=== PATIENT | male | born 1985 | race African-American/Black ===

== ENCOUNTER 2018-10-04 16:58 | Emergency (ER) | payer MEDICAID ==
[~2018-10-04] VITALS: Ht 175.3 cm; Wt 100.7 kg
--- NOTE | 2018-10-04 17:00 | NUR ---
PT BIBSELF C/O WORSENING ASTHMA SYMPTOMS X 2 DAYS. PT ON MONITOR IN BED 10. PT AOX4. DENIES ANY PAIN AT THIS TIME. WILL CONTINUE TO MONITOR.
[2018-10-04] MEDS ORDERED: Magnesium 1GM/D5W 100ML PREMIX 200 ML IV ONE ×2 (17:13→17:36)
[2018-10-04] MEDS ORDERED: methylPREDNISolone SOD SUCC 125 MG/2ML VIAL ONE (17:26)
[2018-10-04] MEDS ORDERED: ALBUTEROL FS 2.5 MG/3 ML VIAL.NEB CONTNEB ONE (17:30)
[2018-10-04] MEDS ORDERED: IPRATROPIUM NEB FS 0.5 MG/2.5 ML AMPUL.NEB NEB ONE ×2 (17:30→20:30)
[2018-10-04] MEDS ORDERED: IV NS 0.9% 1,000 ML BAG IV ONE (17:30)
[2018-10-04] MEDS ORDERED: methylPREDNISolone SOD SUCC 125 MG/2ML VIAL IV ONE (17:30)
--- NOTE | 2018-10-04 17:38 | NUR ---
RADIOLOGY AT BEDSIDE FOR CXR
[2018-10-04] MEDS ORDERED: IPRATROPIUM NEB FS 0.5 MG/2.5 ML AMPUL.NEB ONE ×2 (17:43→20:16)
[2018-10-04] MEDS ORDERED: ALBUTEROL FS 2.5 MG/0.5 ML VIAL.NEB ONE (17:43)
--- NOTE | 2018-10-04 18:18 | NUR ---
PT RECEIVING BREATHING TREATMENT. PT TOLERATING WELL.
--- NOTE | 2018-10-04 19:29 | NUR ---
REPORT GIVEN TO LINDA BHAKTA FOR KEESHA
[2018-10-04] MEDS ORDERED: ALBUTEROL FS 2.5 MG/3 ML VIAL.NEB ONE (20:16)
[2018-10-04] MEDS ORDERED: ALBUTEROL FS 2.5 MG/0.5 ML VIAL.NEB NEB ONE (20:30)
[2018-10-04 21:09] VITALS: BP 110/72
== END 2018-10-04 21:09 | disposition home or self-care (01) ==
LOC: ER 17:01
DX: J45.901 Unspecified asthma with (acute) exacerbation (principal); Z87.891 Personal history of nicotine dependence; Z88.6 Allergy status to analgesic agent
CPT/HCPCS: 71045; 94640; 94644; 96365; 96375; 99285; A4606; J2930; J3475; J7030; Z7610

== ENCOUNTER 2018-11-08 06:37 | Emergency (ER) | payer MEDICAID ==
[~2018-11-08] VITALS: Ht 175.3 cm; Wt 95.3 kg
[2018-11-08] MEDS ORDERED: IPRATROPIUM NEB FS 0.5 MG/2.5 ML AMPUL.NEB NEB ONE (07:00)
[2018-11-08] MEDS ORDERED: predniSONE 20 MG TABLET PO ONE (07:00)
[2018-11-08] MEDS ORDERED: ALBUTEROL FS 2.5 MG/3 ML VIAL.NEB NEB ONE (07:00)
[2018-11-08] MEDS ORDERED: ALBUTEROL FS 2.5 MG/3 ML VIAL.NEB ONE (07:08)
[2018-11-08] MEDS ORDERED: IPRATROPIUM NEB FS 0.5 MG/2.5 ML AMPUL.NEB ONE (07:08)
--- NOTE | 2018-11-08 07:19 | NUR ---
RECEIVED PATIENT WITH ONGOING BREATHING TREATMENT
[2018-11-08] MEDS ORDERED: predniSONE 20 MG TABLET ONE (07:27)
--- NOTE | 2018-11-08 07:53 | NUR ---
Patient discharged to home in stable condition. Written and verbal after care instructions given. Patient verbalizes understanding of instruction.
[2018-11-08 08:02] VITALS: BP 124/86
== END 2018-11-08 08:03 | disposition home or self-care (01) ==
LOC: ER 06:39
DX: J45.901 Unspecified asthma with (acute) exacerbation (principal); F17.200 Nicotine dependence, unspecified, uncomplicated; Z88.6 Allergy status to analgesic agent

== ENCOUNTER 2018-12-05 00:46 | Emergency (ER) | payer MEDICAID ==
[~2018-12-05] VITALS: Ht 165.1 cm; Wt 97.5 kg
--- NOTE | 2018-12-05 01:00 | NUR ---
Pt came to emergency dept. complaining of SOB since yesterday afternoon. Pt states he took his inhalers at home and it has not gotten better. Pt has hx of ashtma. Pt speaking in full sentences. Pt AAXO4. Pt saturating 91% on room air. Pt put on the monitor and pending eval from ER .
--- NOTE | 2018-12-05 01:05 | NUR ---
LASHAUN MORE AT BEDSIDE.
[2018-12-05] MEDS ORDERED: IPRATROPIUM NEB FS 0.5 MG/2.5 ML AMPUL.NEB ONE (01:13)
[2018-12-05] MEDS ORDERED: ALBUTEROL FS 2.5 MG/3 ML VIAL.NEB ONE (01:13)
--- NOTE | 2018-12-05 01:13 | NUR ---
RT AT BEDSIDE.
[2018-12-05] MEDS ORDERED: predniSONE 20 MG TABLET ONE (01:24)
[2018-12-05] MEDS ORDERED: predniSONE 20 MG TABLET PO ONE (01:30)
[2018-12-05] MEDS ORDERED: ALBUTEROL FS 2.5 MG/3 ML VIAL.NEB NEB ONE (01:30)
[2018-12-05] MEDS ORDERED: IPRATROPIUM NEB FS 0.5 MG/2.5 ML AMPUL.NEB NEB ONE (01:30)
--- NOTE | 2018-12-05 01:48 | NUR ---
Patient discharged to home in stable condition. Written and verbal after care instructions given. Patient verbalizes understanding of instruction. Pt ambulatory with steady gait.
[2018-12-05 01:50] VITALS: BP 126/80
== END 2018-12-05 01:52 | disposition home or self-care (01) ==
LOC: ER 00:51
DX: J45.909 Unspecified asthma, uncomplicated (principal); F17.200 Nicotine dependence, unspecified, uncomplicated; Z88.6 Allergy status to analgesic agent
CPT/HCPCS: 94640 ×2; 99284; A4606; J7512

== ENCOUNTER 2018-12-29 21:57 | Emergency (ER) | payer MEDICAID ==
[~2018-12-29] VITALS: Ht 175.3 cm; Wt 97.5 kg
[2018-12-29] MEDS ORDERED: predniSONE 20 MG TABLET ONE (22:53)
[2018-12-29] MEDS ORDERED: IPRATROPIUM NEB FS 0.5 MG/2.5 ML AMPUL.NEB ONE (22:56)
[2018-12-29] MEDS ORDERED: ALBUTEROL FS 2.5 MG/3 ML VIAL.NEB ONE (22:56)
[2018-12-29] MEDS ORDERED: ALBUTEROL FS 2.5 MG/3 ML VIAL.NEB CONTNEB ONE (23:00)
[2018-12-29] MEDS ORDERED: predniSONE 20 MG TABLET PO ONE (23:00)
[2018-12-29] MEDS ORDERED: IPRATROPIUM NEB FS 0.5 MG/2.5 ML AMPUL.NEB NEB ONE (23:00)
--- NOTE | 2018-12-29 23:30 | NUR ---
admitted for wheezing episode,stable,awake,alert., not in acyte distress.
--- NOTE | 2018-12-30 00:15 | NUR ---
Discharged to home ,stable,not in any dsitress.
[2018-12-30 01:07] VITALS: BP 120/68
== END 2018-12-30 00:15 | disposition home or self-care (01) ==
LOC: ER 22:01
DX: J45.901 Unspecified asthma with (acute) exacerbation (principal); F17.200 Nicotine dependence, unspecified, uncomplicated; Z88.6 Allergy status to analgesic agent
CPT/HCPCS: 93005; 94640 ×2; 99284; A4606; J7512

== ENCOUNTER 2019-01-10 17:46 | Emergency (ER) | payer MEDICAID ==
[~2019-01-10] VITALS: Ht 175.3 cm; Wt 97.5 kg
[2019-01-10] MEDS ORDERED: ALBUTEROL FS 2.5 MG/3 ML VIAL.NEB NEB ONE (18:30)
[2019-01-10] MEDS ORDERED: IPRATROPIUM NEB FS 0.5 MG/2.5 ML AMPUL.NEB NEB ONE (18:30)
[2019-01-10] MEDS ORDERED: predniSONE 20 MG TABLET PO ONE (18:30)
[2019-01-10] MEDS ORDERED: ALBUTEROL FS 2.5 MG/3 ML VIAL.NEB ONE (18:39)
[2019-01-10] MEDS ORDERED: IPRATROPIUM NEB FS 0.5 MG/2.5 ML AMPUL.NEB ONE (18:39)
[2019-01-10] MEDS ORDERED: predniSONE 20 MG TABLET ONE (18:43)
[2019-01-10 19:25] VITALS: BP 125/84
--- NOTE | 2019-01-10 19:34 | NUR ---
PT SEEN AND ASSESSED BY DR LOUIS. WAS GIVEN BREATHING TREATMENT. PT STATES FEELING MUCH BETTER. D/C HOME W/ PRESCRIPTION IN STABLE CONDITION.
== END 2019-01-10 19:38 | disposition home or self-care (01) ==
LOC: ER 17:46
DX: J45.21 Mild intermittent asthma with (acute) exacerbation (principal); F17.200 Nicotine dependence, unspecified, uncomplicated; Z88.6 Allergy status to analgesic agent
CPT/HCPCS: 71045; 93005; 94640; 99283; J7512

== ENCOUNTER 2019-02-05 08:56 | Emergency (ER) | payer MEDICAID ==
[~2019-02-05] VITALS: Ht 175.3 cm; Wt 97.5 kg
--- NOTE | 2019-02-05 09:00 | NUR ---
CAME IN FOR SOB AROUND 6AM TODAY. ALBUTEROL IHALER TAKEN 30MINS AGO. TO ER BED 3, HOOKED TO MONITOR, PROVIDED W WARM BLANKET, AWAITING MD MAX. BILATERAL WHEEZING NOTED.
[2019-02-05] MEDS ORDERED: ALBUTEROL FS 2.5 MG/3 ML VIAL.NEB ONE (09:44)
[2019-02-05] MEDS ORDERED: IPRATROPIUM NEB FS 0.5 MG/2.5 ML AMPUL.NEB ONE (09:44)
[2019-02-05] MEDS ORDERED: predniSONE 20 MG TABLET ONE (09:45)
--- NOTE | 2019-02-05 09:47 | NUR ---
ONGOING BRATHING TREATMENT Addendum: 02/05/19 at 6318 by ADELINE ONGOING BREATHING TREATMENT
[2019-02-05] MEDS ORDERED: predniSONE 20 MG TABLET PO ONE (10:00)
[2019-02-05] MEDS ORDERED: ALBUTEROL FS 2.5 MG/3 ML VIAL.NEB CONTNEB ONE (10:00)
[2019-02-05] MEDS ORDERED: IPRATROPIUM NEB FS 0.5 MG/2.5 ML AMPUL.NEB NEB ONE (10:00)
[2019-02-05 11:02] VITALS: BP 122/71
--- NOTE | 2019-02-05 11:04 | NUR ---
Patient discharged to home in stable condition. Written and verbal after care instructions given. Patient verbalizes understanding of instruction.
--- NOTE | 2019-02-05 11:04 | NUR ---
Tish flores in ED - 02/05/19 at 1104 by LUIS Patient discharged to home in stable condition. Written and verbal after care instructions given. Patient verbalizes understanding of instruction. ambulatory with steady gait. no further complaints.
== END 2019-02-05 11:03 | disposition home or self-care (01) ==
LOC: ER 08:57
DX: J45.901 Unspecified asthma with (acute) exacerbation (principal); F17.200 Nicotine dependence, unspecified, uncomplicated; Z88.6 Allergy status to analgesic agent
CPT/HCPCS: 93005; 94644; 99285; J7512

== ENCOUNTER 2019-03-17 18:17 | Emergency (ER) | payer MEDICAID ==
[~2019-03-17] VITALS: Ht 175.3 cm; Wt 95.3 kg
--- NOTE | 2019-03-17 18:25 | NUR ---
AAOX3, came to ER c/o chest and nasal congestion started this afternoon. RR is even and unlabored with nad noted. Skin is warm and dry. Awaiting md for eval.
--- NOTE | 2019-03-17 19:20 | NUR ---
REPORT RECEIVED FROM LINDA PERKINS FOR KEESHA.
--- NOTE | 2019-03-17 19:23 | NUR ---
REPORT GIVEN TO ARTURO MCKEON FOR KEESHA.
[2019-03-17] MEDS ORDERED: methylPREDNISolone SOD SUCC 125 MG/2ML VIAL ONE (19:26)
[2019-03-17] MEDS ORDERED: IPRATROPIUM NEB FS 0.5 MG/2.5 ML AMPUL.NEB NEB ONE (19:30)
[2019-03-17] MEDS ORDERED: methylPREDNISolone SOD SUCC 125 MG/2ML VIAL IM ONE (19:30)
[2019-03-17] MEDS ORDERED: ALBUTEROL FS 2.5 MG/3 ML VIAL.NEB NEB ONE (19:30)
[2019-03-17] MEDS ORDERED: ALBUTEROL FS 2.5 MG/3 ML VIAL.NEB ONE (19:49)
[2019-03-17] MEDS ORDERED: IPRATROPIUM NEB FS 0.5 MG/2.5 ML AMPUL.NEB ONE (19:49)
[2019-03-17 23:58] VITALS: BP 125/73
== END 2019-03-17 20:00 | disposition home or self-care (01) ==
LOC: ER 18:17
DX: J45.901 Unspecified asthma with (acute) exacerbation (principal); F17.200 Nicotine dependence, unspecified, uncomplicated; Z88.6 Allergy status to analgesic agent
CPT/HCPCS: 94640; 96372; 99283; J2930

== ENCOUNTER → 2019-04-14 | Emergency (ER) | payer MEDICAID ==
[~2019-04-14] VITALS: Ht 175.3 cm; Wt 95.3 kg
[~2019-04-14] MED LIST: ALBUTEROL FS 2.5 MG/0.5 ML VIAL.NEB NEB ONE; ALBUTEROL FS 2.5 MG/3 ML VIAL.NEB NEB ONE; ALBUTEROL FS 2.5 MG/3 ML VIAL.NEB ONE; IPRATROPIUM NEB FS 0.5 MG/2.5 ML AMPUL.NEB NEB ONE; IPRATROPIUM NEB FS 0.5 MG/2.5 ML AMPUL.NEB ONE; predniSONE 20 MG TABLET ONE; predniSONE 20 MG TABLET PO ONE
--- NOTE | 2019-04-14 05:55 | NUR ---
BIBS FOR SOB X1 HOUR AND JUST STARTED ON DRY COUGH WELL. DENIED COLD OR ALLERGY. SATTING 88-90% ON R/A. PMH: ASTHMA. PT WAS PLACED ON O2 AT 4LPM VIA NC . O2 SAT INCREASED TO 92%. ON A MONITOR. VSS,.
--- NOTE | 2019-04-14 05:57 | NUR ---
RT AT THE BED SIDE
--- NOTE | 2019-04-14 06:12 | NUR ---
RECEIVING BREATHING TX, SATTING AT 99%. MEDICATED ORDERED. REPORTED MUCH BETTER.
--- NOTE | 2019-04-14 08:01 | NUR ---
RN NOTES VSS STABLE , CONTINUE TO MONITOR .
[2019-04-14 08:24] VITALS: BP 124/71
--- NOTE | 2019-04-14 08:28 | NUR ---
Patient discharged to home in stable condition. Written and verbal after care instructions given. Patient verbalizes understanding of instruction .pt left the ER ambulatory in stable condition .
== END | disposition home or self-care (01) ==
LOC: ER 05:44
DX: J45.909 Unspecified asthma, uncomplicated (principal); R09.02 Hypoxemia; F17.200 Nicotine dependence, unspecified, uncomplicated; Z88.6 Allergy status to analgesic agent
CPT/HCPCS: 94640 ×2; 99284; J7512

== ENCOUNTER 2019-04-25 09:40 | Emergency (ER) | payer MEDICAID ==
[~2019-04-25] VITALS: Ht 172.7 cm; Wt 95.3 kg
[2019-04-25 09:47] VITALS: BP 114/69
[2019-04-25] MEDS ORDERED: ALBUTEROL FS 2.5 MG/3 ML VIAL.NEB NEB ONE (10:00)
[2019-04-25] MEDS ORDERED: predniSONE 20 MG TABLET PO ONE (10:00)
[2019-04-25] MEDS ORDERED: IPRATROPIUM NEB FS 0.5 MG/2.5 ML AMPUL.NEB NEB ONE (10:00)
--- NOTE | 2019-04-25 10:00 | NUR ---
DR KANG AT BEDSIDE FOR EVAL.
[2019-04-25] MEDS ORDERED: ALBUTEROL FS 2.5 MG/3 ML VIAL.NEB ONE (10:13)
[2019-04-25] MEDS ORDERED: IPRATROPIUM NEB FS 0.5 MG/2.5 ML AMPUL.NEB ONE (10:14)
[2019-04-25] MEDS ORDERED: predniSONE 20 MG TABLET ONE (10:16)
== END 2019-04-25 11:41 | disposition home or self-care (01) ==
LOC: ER 09:43
DX: J45.901 Unspecified asthma with (acute) exacerbation (principal); H00.015 Hordeolum externum left lower eyelid; F17.200 Nicotine dependence, unspecified, uncomplicated; Z88.6 Allergy status to analgesic agent
CPT/HCPCS: 94640; 99283; J7512

== ENCOUNTER 2019-06-19 12:04 | Emergency (ER) | payer MEDICAID ==
[2019-06-19] MEDS ORDERED: ALBUTEROL FS 2.5 MG/3 ML VIAL.NEB CONTNEB ONE (12:30)
[2019-06-19] MEDS ORDERED: predniSONE 20 MG TABLET PO ONE (12:30)
[2019-06-19] MEDS ORDERED: IPRATROPIUM NEB FS 0.5 MG/2.5 ML AMPUL.NEB ONE (12:30)
[2019-06-19] MEDS ORDERED: IPRATROPIUM NEB FS 0.5 MG/2.5 ML AMPUL.NEB NEB ONE (12:30)
[2019-06-19] MEDS ORDERED: ALBUTEROL FS 2.5 MG/3 ML VIAL.NEB ONE (12:30)
[2019-06-19] MEDS ORDERED: predniSONE 20 MG TABLET ONE (12:46)
== END 2019-06-19 14:31 | disposition home or self-care (01) ==
DX: J45.909 Unspecified asthma, uncomplicated (principal); F17.200 Nicotine dependence, unspecified, uncomplicated; Z88.6 Allergy status to analgesic agent
CPT/HCPCS: 94644; 99285; J7030; J7512

== ENCOUNTER 2019-07-02 09:48 | Emergency (ER) | payer MEDICAID ==
[~2019-07-02] VITALS: Ht 172.7 cm; Wt 95.7 kg
--- NOTE | 2019-07-02 09:53 | NUR ---
CAME IN FOR "ASTHMA ATTACK". TO ER 9, HOOKED TO MONITOR, CHANGED TO DULCEWGladys AWAITING MD MAX.
--- NOTE | 2019-07-02 09:57 | NUR ---
DR MURRELL AT BEDSIDE
[2019-07-02] MEDS ORDERED: IPRATROPIUM NEB FS 0.5 MG/2.5 ML AMPUL.NEB NEB ONE ×2 (10:00→12:00)
[2019-07-02] MEDS ORDERED: predniSONE 20 MG TABLET PO ONE (10:00)
[2019-07-02] MEDS ORDERED: ALBUTEROL FS 2.5 MG/3 ML VIAL.NEB CONTNEB STA (10:00)
[2019-07-02] MEDS ORDERED: predniSONE 20 MG TABLET ONE (10:03)
[2019-07-02] MEDS ORDERED: IPRATROPIUM NEB FS 0.5 MG/2.5 ML AMPUL.NEB ONE ×2 (10:04→11:39)
[2019-07-02] MEDS ORDERED: ALBUTEROL FS 2.5 MG/3 ML VIAL.NEB ONE ×2 (10:04→11:39)
--- NOTE | 2019-07-02 10:05 | NUR ---
RT AT BEDSIDE FOR BREATHING TX
--- NOTE | 2019-07-02 11:38 | NUR ---
RT AT BEDSIDE, 2ND BREATHING TX FOR PT
[2019-07-02] MEDS ORDERED: ALBUTEROL FS 2.5 MG/3 ML VIAL.NEB NEB ONE (12:00)
--- NOTE | 2019-07-02 12:18 | NUR ---
Patient discharged to home in stable condition. Written and verbal after care instructions given. Patient verbalizes understanding of instruction.
[2019-07-02 12:19] VITALS: BP 118/77
== END 2019-07-02 12:20 | disposition home or self-care (01) ==
LOC: ER 09:50
DX: J45.901 Unspecified asthma with (acute) exacerbation (principal); Z87.891 Personal history of nicotine dependence; Z88.6 Allergy status to analgesic agent
CPT/HCPCS: 94640 ×2; 99284; J7512

== ENCOUNTER 2019-07-26 20:36 | Emergency (ER) | payer MEDICAID ==
[~2019-07-26] VITALS: Ht 175.3 cm; Wt 95.3 kg
--- NOTE | 2019-07-26 20:36 | NUR ---
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 USED ALBUTEROL WITHOUT RELIEF. WHEEZING HEARD BILATERALLY ON AUSCULTATION. PLAEC PT ON CARDIAC MONITORING, CONTINUOUS POX. ER MD AT BEDSIDE TO EVAL PT WITH ORDERS RECEIVED. WILL CARRY OUT ORDERS.
[2019-07-26] MEDS ORDERED: Magnesium 1GM/D5W 100ML PREMIX 200 ML IV ONE ×2 (20:40→20:50)
[2019-07-26] MEDS ORDERED: IPRATROPIUM NEB FS 0.5 MG/2.5 ML AMPUL.NEB ONE (20:49)
[2019-07-26] MEDS ORDERED: ALBUTEROL FS 2.5 MG/3 ML VIAL.NEB ONE (20:49)
[2019-07-26] MEDS ORDERED: methylPREDNISolone SOD SUCC 125 MG/2ML VIAL ONE (20:50)
--- NOTE | 2019-07-26 20:56 | NUR ---
RT AT BEDSIDE TO GIVE HHN TX.
[2019-07-26] MEDS ORDERED: IPRATROPIUM NEB FS 0.5 MG/2.5 ML AMPUL.NEB NEB ONE (21:00)
[2019-07-26] MEDS ORDERED: IV NS 0.9% 1,000 ML BAG IV ONE (21:00)
[2019-07-26] MEDS ORDERED: methylPREDNISolone SOD SUCC 125 MG/2ML VIAL IV ONE (21:00)
[2019-07-26] MEDS ORDERED: ALBUTEROL FS 2.5 MG/3 ML VIAL.NEB CONTNEB ONE (21:00)
--- NOTE | 2019-07-26 21:00 | NUR ---
PT MEDICATED ORDERED.
--- NOTE | 2019-07-26 21:59 | NUR ---
HHN TX STILL IN PROGRESS. PT VERBALIZE RELIEF OF SON. PT AAOX4 NO ACUTE DISTRESS NOTED, RESP EVEN AND UNLABORED. WILL CONTINUE TO MONITOR PT.
--- NOTE | 2019-07-26 23:19 | NUR ---
IV removed. Catheter intact and site benign. Pressure and 4x4 applied to site. No bleeding noted. Patient discharged to home in stable condition. Written and verbal after care instructions given. Patient verbalizes understanding of instruction. ambulatory with a steady gait
[2019-07-26 23:20] VITALS: BP 127/72
== END 2019-07-26 23:20 | disposition home or self-care (01) ==
LOC: ER 20:38
DX: J45.901 Unspecified asthma with (acute) exacerbation (principal); R00.0 Tachycardia, unspecified; Z87.891 Personal history of nicotine dependence; Z88.6 Allergy status to analgesic agent
CPT/HCPCS: 93005; 94644; 96365; 96375; 99285; J2930; J3475; J7030

== ENCOUNTER 2019-08-26 08:53 | Emergency (ER) | payer MEDICAID ==
[~2019-08-26] VITALS: Ht 175.3 cm; Wt 95.7 kg
--- NOTE | 2019-08-26 09:06 | NUR ---
PATIENT ARRIVED AT UNIT AMBULATORY. WITH REPORT OF SOB X 2HRS, HX OF ASTHMA. PATIENT A/O X 4. 90% O2 SAT ON ROOM AIR. OXYGEN PLACED AT 2L/MIN VIA NC. CONNECTED TO MONITOR. WILL CONTINUE TO MONITOR ACCORDINGLY
[2019-08-26] MEDS: ALBUTEROL FS 2.5 MG/3 ML VIAL.NEB CONTNEB ONE (09:08)
[2019-08-26] MEDS: IPRATROPIUM NEB FS 0.5 MG/2.5 ML AMPUL.NEB NEB ONE (09:09)
[2019-08-26] MEDS ORDERED: ALBUTEROL FS 2.5 MG/3 ML VIAL.NEB ONE (09:15)
[2019-08-26] MEDS ORDERED: IPRATROPIUM NEB FS 0.5 MG/2.5 ML AMPUL.NEB ONE (09:15)
[2019-08-26] MEDS ORDERED: methylPREDNISolone SOD SUCC 125 MG/2ML VIAL ONE (09:28)
[2019-08-26] MEDS: methylPREDNISolone SOD SUCC 125 MG/2ML VIAL IV ONE (09:35)
--- NOTE | 2019-08-26 10:09 | NUR ---
IV removed. Catheter intact and site benign. Pressure and 4x4 applied to site. No bleeding noted.Patient discharged to home in stable condition. Written and verbal after care instructions given. Patient verbalizes understanding of instruction. Written prescription provided to patient and verbalized understanding
[2019-08-26 10:10] VITALS: BP 122/86
== END 2019-08-26 10:10 | disposition home or self-care (01) ==
LOC: ER 08:55
DX: J45.909 Unspecified asthma, uncomplicated (principal); F17.200 Nicotine dependence, unspecified, uncomplicated; Z88.6 Allergy status to analgesic agent
CPT/HCPCS: 94640 ×2; 96374; 99284; J2930

== ENCOUNTER 2019-09-15 10:16 | Emergency (ER) | payer MEDICAID ==
[~2019-09-15] VITALS: Ht 172.7 cm; Wt 92.1 kg
--- NOTE | 2019-09-15 10:45 | NUR ---
sob, wheezing x 1 hour, hx asthma requesting breathing tx, prednisone. PATIENT A/OX4, ON ROOM AIR WITH SPO2 96%. PATIENT APPEARS TO BE CONGESTED,NO DISTRESS NOTED.
[2019-09-15] MEDS ORDERED: predniSONE 20 MG TABLET ONE (10:56)
[2019-09-15] MEDS ORDERED: predniSONE 20 MG TABLET PO ONE (11:00)
[2019-09-15] MEDS ORDERED: ALBUTEROL FS 2.5 MG/3 ML VIAL.NEB NEB ONE (11:00)
[2019-09-15] MEDS ORDERED: ALBUTEROL FS 2.5 MG/3 ML VIAL.NEB ONE (11:04)
--- NOTE | 2019-09-15 11:45 | NUR ---
Patient stated he feels better. Breathing even and unlabored, no sob noted. Patient discharged to home in stable condition. Written and verbal after care instructions given. Patient verbalizes understanding of instruction.
[2019-09-15 11:46] VITALS: BP 124/78
== END 2019-09-15 11:46 | disposition home or self-care (01) ==
LOC: ER 10:17
DX: J45.909 Unspecified asthma, uncomplicated (principal); F17.200 Nicotine dependence, unspecified, uncomplicated; Z88.6 Allergy status to analgesic agent
CPT/HCPCS: 94640; 99283; J7512

== ENCOUNTER 2020-02-08 12:19 | Emergency (ER) | payer SELFPAY ==
[~2020-02-08] VITALS: Ht 170.2 cm; Wt 74.8 kg
[2020-02-08 12:25] VITALS: BP 136/77
[2020-02-08] MEDS ORDERED: predniSONE 20 MG TABLET ONE (13:00)
[2020-02-08] MEDS ORDERED: ALBUTEROL SULFATE 8 GM HFA.AER.AD IH PRN (13:00)
[2020-02-08] MEDS ORDERED: ALBUTEROL SULFATE INH 18 GM HFA.AER.AD IH PRN ×2 (13:00)
[2020-02-08] MEDS ORDERED: predniSONE 50 MG TABLET PO ONE (13:00)
--- NOTE | 2020-02-08 13:39 | NUR ---
Patient discharged to home in stable condition. Written and verbal after care instructions given. Patient verbalizes understanding of instruction. Pt ambulatory with a steady gait
--- NOTE | 2020-02-08 13:51 | NUR ---
Tish flores in [facility] - 02/08/20 at 1351 by LARISSA Patient discharged to home in stable condition. Written and verbal after care instructions given. Patient verbalizes understanding of instruction.
== END 2020-02-08 13:51 | disposition home or self-care (01) ==
LOC: ER 12:22
DX: J45.901 Unspecified asthma with (acute) exacerbation (principal); F17.200 Nicotine dependence, unspecified, uncomplicated; Z88.6 Allergy status to analgesic agent
CPT/HCPCS: 71045; 99283; J7512

== ENCOUNTER 2020-03-14 11:13 | Emergency (ER) | payer SELFPAY ==
[~2020-03-14] VITALS: Ht 175.3 cm; Wt 88.5 kg
--- NOTE | 2020-03-14 11:40 | NUR ---
"Asthma - went running triggered my asthma". PT AAOX4, VSS. DENIES CP, DIZZINESS, N/V, FEVER, WEAKNESS @ THIS TIME. PT SEEN & EVAL'D BY DR. MURRELL. WILL CONT TO MONITOR.
[2020-03-14] MEDS ORDERED: predniSONE 20 MG TABLET ONE (11:44)
[2020-03-14] MEDS ORDERED: predniSONE 20 MG TABLET PO ONE (12:00)
[2020-03-14] MEDS ORDERED: ALBUTEROL SULFATE INH 18 GM HFA.AER.AD IH PRN (12:00)
[2020-03-14 12:43] VITALS: BP 117/68
--- NOTE | 2020-03-14 12:43 | NUR ---
Patient discharged to home in stable condition. Written and verbal after care instructions given. Patient verbalizes understanding of instruction.
== END 2020-03-14 12:43 | disposition home or self-care (01) ==
LOC: ER 11:13
DX: J45.901 Unspecified asthma with (acute) exacerbation (principal); Z88.6 Allergy status to analgesic agent
CPT/HCPCS: 99283; J7512

== ENCOUNTER 2020-05-31 09:40 | Emergency (ER) | payer SELFPAY ==
[~2020-05-31] VITALS: Ht 175.3 cm; Wt 89.8 kg
[2020-05-31 09:45] VITALS: BP 105/72
[2020-05-31] MEDS ORDERED: predniSONE 20 MG TABLET ONE (09:52)
[2020-05-31] MEDS ORDERED: predniSONE 20 MG TABLET PO ONE (10:00)
== END 2020-05-31 10:04 | disposition home or self-care (01) ==
LOC: ER 09:40
DX: J98.01 Acute bronchospasm (principal); F17.200 Nicotine dependence, unspecified, uncomplicated; Z88.6 Allergy status to analgesic agent
CPT/HCPCS: 99283; 99406; J7512

== ENCOUNTER 2020-11-01 11:24 | Emergency (ER) | payer MEDICAID ==
[~2020-11-01] VITALS: Ht 172.7 cm; Wt 86.2 kg
[2020-11-01] MEDS ORDERED: predniSONE 20 MG TABLET ONE (11:52)
[2020-11-01] MEDS ORDERED: IPRATROPIUM NEB FS 0.5 MG/2.5 ML AMPUL.NEB ONE (11:56)
[2020-11-01] MEDS ORDERED: ALBUTEROL FS 2.5 MG/3 ML VIAL.NEB ONE (11:56)
[2020-11-01] MEDS ORDERED: predniSONE 20 MG TABLET PO ONE (12:00)
[2020-11-01] MEDS ORDERED: ALBUTEROL FS 2.5 MG/3 ML VIAL.NEB NEB ONE (12:00)
[2020-11-01] MEDS ORDERED: IPRATROPIUM NEB FS 0.5 MG/2.5 ML AMPUL.NEB NEB ONE (12:00)
--- NOTE | 2020-11-01 12:00 | NUR ---
RT AT BEDSIDE FOR BREATHING TREATMENT.
--- NOTE | 2020-11-01 12:18 | NUR ---
REFUSED COVID TEST. DR FELIPE AWARE.
[2020-11-01 12:30] VITALS: BP 116/85
== END 2020-11-01 12:51 | disposition home or self-care (01) ==
LOC: ER 11:28
DX: J45.909 Unspecified asthma, uncomplicated (principal); Z88.6 Allergy status to analgesic agent
CPT/HCPCS: 94640; 99283; J7512

== ENCOUNTER 2020-12-21 09:46 | Emergency (ER) | payer MEDICAID, OTHER ==
[~2020-12-21] VITALS: Ht 172.7 cm; Wt 86.2 kg
[2020-12-21 09:48] VITALS: BP 134/96
[2020-12-21] MEDS ORDERED: PRED50TA PO (10:07)
[2020-12-21] MEDS ORDERED: ALBU8.5H8 INH (10:07)
[2020-12-21] MEDS: IPRATROPIUM NEB FS 0.5 MG/2.5 ML AMPUL.NEB NEB ONE (10:12)
[2020-12-21] MEDS ORDERED: ALBUTEROL FS 2.5 MG/3 ML VIAL.NEB ONE (10:12)
[2020-12-21] MEDS ORDERED: IPRATROPIUM NEB FS 0.5 MG/2.5 ML AMPUL.NEB ONE (10:12)
[2020-12-21] MEDS: ALBUTEROL FS 2.5 MG/3 ML VIAL.NEB NEB ONE (10:12)
--- NOTE | 2020-12-21 10:12 | NUR ---
RT AT BEDSIDE FOR BREATHING TX.
[2020-12-21] MEDS: predniSONE 20 MG TABLET PO ONE (10:21)
[2020-12-21] MEDS ORDERED: predniSONE 20 MG TABLET ONE (10:22)
--- NOTE | 2020-12-21 10:51 | NUR ---
Patient discharged to home in stable condition. Written and verbal after care instructions given. Patient verbalizes understanding of instruction.
== END 2020-12-21 10:52 | disposition home or self-care (01) ==
LOC: ER 09:49
DX: J98.01 Acute bronchospasm (principal); F17.200 Nicotine dependence, unspecified, uncomplicated; Z88.6 Allergy status to analgesic agent; Z79.899 Other long term (current) drug therapy
CPT/HCPCS: 94640 ×2; 99284; J7512

== ENCOUNTER 2021-08-29 10:58 | Emergency (ER) | payer OTHER ==
[~2021-08-29] VITALS: Ht 172.7 cm; Wt 93.0 kg
[~2021-08-29 10:58] MED LIST changes: +ALBU8.5H8 INH; -ALBUTEROL FS 2.5 MG/0.5 ML VIAL.NEB NEB ONE; -ALBUTEROL FS 2.5 MG/3 ML VIAL.NEB NEB ONE; -ALBUTEROL FS 2.5 MG/3 ML VIAL.NEB ONE; -IPRATROPIUM NEB FS 0.5 MG/2.5 ML AMPUL.NEB NEB ONE; -IPRATROPIUM NEB FS 0.5 MG/2.5 ML AMPUL.NEB ONE; +PRED50TA PO; -predniSONE 20 MG TABLET ONE; -predniSONE 20 MG TABLET PO ONE
--- NOTE | 2021-08-29 11:10 | NUR ---
SOB, hx asthma. ran out of inhaler 2 days ago. PT AAOX4, ON TELE, SR. DENIES CP, DIZZINESS, N/V AT THIS TIME. AWAITING EVAL BY KACY. WILL CONT TO MONITOR.
[2021-08-29] MEDS ORDERED: PRED50TA PO (11:22)
[2021-08-29] MEDS ORDERED: ALBU8.5H8 INH (11:22)
[2021-08-29] MEDS ORDERED: IPRATROPIUM NEB FS 0.5 MG/2.5 ML AMPUL.NEB NEB ONE (11:30)
[2021-08-29] MEDS ORDERED: ALBUTEROL FS 2.5 MG/3 ML VIAL.NEB NEB ONE (11:30)
[2021-08-29] MEDS ORDERED: predniSONE 20 MG TABLET PO ONE (11:30)
[2021-08-29] MEDS ORDERED: predniSONE 20 MG TABLET ONE (11:38)
[2021-08-29] MEDS ORDERED: IPRATROPIUM NEB FS 0.5 MG/2.5 ML AMPUL.NEB ONE (11:41)
[2021-08-29] MEDS ORDERED: ALBUTEROL FS 2.5 MG/3 ML VIAL.NEB ONE (11:41)
--- NOTE | 2021-08-29 11:43 | NUR ---
MEDICATED PER ERMD ORDER. PT GETTING BREATHING TX, PT RAYRAY WELL.
--- NOTE | 2021-08-29 11:44 | NUR ---
RT AT BEDSIDE FOR BREATHING TX.
--- NOTE | 2021-08-29 13:32 | NUR ---
Patient discharged to home in stable condition. Written and verbal after care instructions given. Patient verbalizes understanding of instruction.
[2021-08-29 13:33] VITALS: BP 129/83
== END 2021-08-29 13:33 | disposition home or self-care (01) ==
LOC: ER 11:06
DX: J98.01 Acute bronchospasm (principal); F17.200 Nicotine dependence, unspecified, uncomplicated; Z88.6 Allergy status to analgesic agent; Z79.899 Other long term (current) drug therapy
CPT/HCPCS: 94640 ×2; 99285; J7512

== ENCOUNTER 2022-05-09 01:16 | Emergency (ER) | payer OTHER ==
[~2022-05-09] VITALS: Ht 172.7 cm; Wt 97.5 kg
[2022-05-09] MEDS ORDERED: DEXAMETHASONE SOD PHOSPHATE 4 MG/ML VIAL IM ONE (01:30)
[2022-05-09] MEDS ORDERED: ALBUTEROL FS 2.5 MG/0.5 ML VIAL.NEB NEB ONE (01:30)
[2022-05-09] MEDS ORDERED: PRED50TA PO (01:32)
[2022-05-09] MEDS ORDERED: ALBU6.7H9 INH (01:32)
--- NOTE | 2022-05-09 01:33 | NUR ---
BIBS C/O ASTHMA EXACERBATION AND SOB. RAN OUT OF INHALER. +WHEEZES.PLACED ON MONITOR AND PULSE OX 95% RA.
[2022-05-09] MEDS ORDERED: DEXAMETHASONE SOD PHOSPHATE 10 MG/ML VIAL ONE (01:35)
--- NOTE | 2022-05-09 01:40 | NUR ---
RT PAGED FOR BREATHING TX
[2022-05-09] MEDS ORDERED: ALBUTEROL FS 2.5 MG/0.5 ML VIAL.NEB ONE (01:48)
--- NOTE | 2022-05-09 02:11 | NUR ---
Patient discharged to home in stable condition. Written and verbal after care instructions given. Patient verbalizes understanding of instruction.
[2022-05-09 02:37] VITALS: BP 136/77
== END 2022-05-09 02:15 | disposition home or self-care (01) ==
LOC: ER 01:22
DX: J98.01 Acute bronchospasm (principal); F17.200 Nicotine dependence, unspecified, uncomplicated; Z88.6 Allergy status to analgesic agent; Z79.899 Other long term (current) drug therapy
CPT/HCPCS: 99285; 96372; 94640; J1100